=== PATIENT | female | born 1995 | race Caucasian/White ===

== ENCOUNTER 2019-11-04 18:27 | Emergency (ER) | payer MEDICAID ==
[~2019-11-04] VITALS: Ht 154.9 cm; Wt 54.0 kg
[2019-11-04 18:44] VITALS: BP 101/51
== END 2019-11-04 18:55 | disposition left against medical advice (07) ==
LOC: ER 18:27
DX: Z53.21 Procedure and treatment not carried out due to patient leaving prior to being seen by health care provider (principal)
CPT/HCPCS: 93005

== ENCOUNTER 2021-09-05 08:50 | Observation (INO) | payer MEDICAID, OTHER ==
[~2021-09-05] VITALS: Ht 162.6 cm; Wt 54.0 kg
[~2021-09-05 08:50] MED LIST: ACET-2708 PO
[2021-09-05] MEDS ORDERED: SODIUM CHLORIDE 0.9% 1,000 ML IV ONE (09:30)
[2021-09-05 09:51] LABS: BASOPHILS % 0.2 % (0.0-2.0); EOSINOPHILS % 0.4 % (0.0-5.0); HEMOGLOBIN. 10.1 g/dL (12.0-16.0); LYMPHOCYTES % 12.8 % (20.0-50.0); MEAN CORPUSCULAR HEMOGLOBIN 31.2 pg (28.0-32.0); MEAN CORPUSCULAR VOLUME 92.5 fL (81.0-99.0); MEAN PLATELET VOLUME 9.5 fl (7.4-10.4); NEUTROPHILS % 79.6 % (40.0-76.0); PLATELET 228 x1000/uL (130-400); RED BLOOD CELL COUNT 3.25 mill/uL (4.2-5.4); RED CELL DISTRIBUTION WIDTH 12.9 % (11.6-14.6)
[2021-09-05 10:02] LABS: CHLORIDE 106 mEq/L (98-107)
[2021-09-05 10:05] LABS: ETHANOL BLOOD < 10 mg/dL
[2021-09-05 10:24] LABS: B-HCG QUANTITATIVE 9671 mIU/mL (<3)
[2021-09-05 14:20] VITALS: BP 102/64
== END 2021-09-05 16:30 | disposition home or self-care (01) ==
LOC: ER 09:08 → 8 EST A/PP 16:05
PROVIDERS: ADMIT Obstetrics & Gynecology; ATTEND Obstetrics & Gynecology
DX: O26.892 Other specified pregnancy related conditions, second trimester (principal); M54.2 Cervicalgia; O99.512 Diseases of the respiratory system complicating pregnancy, second trimester; O26.832 Pregnancy related renal disease, second trimester; N28.9 Disorder of kidney and ureter, unspecified; O99.322 Drug use complicating pregnancy, second trimester; F15.90 Other stimulant use, unspecified, uncomplicated; O99.012 Anemia complicating pregnancy, second trimester; D64.9 Anemia, unspecified; J45.909 Unspecified asthma, uncomplicated; O99.342 Other mental disorders complicating pregnancy, second trimester; F53.1 Puerperal psychosis; R41.82 Altered mental status, unspecified; Z3A.24 24 weeks gestation of pregnancy; Z79.899 Other long term (current) drug therapy
CPT/HCPCS: 36415; 59025; 76805; 80053; 80307; 80320; 80329; 84702; 85025; 93005; 96360; 96361; 99285; G0378; J7030; 99281; G0480

== ENCOUNTER 2023-08-07 11:09 | Emergency (ER) | payer MEDICAID ==
[~2023-08-07] VITALS: Ht 154.9 cm; Wt 55.0 kg
[2023-08-07 11:11] VITALS: O2SAT 97
[2023-08-07] MEDS: LIDOCAINE HCL/PF 1% 10 MG/ML 5ML VIAL INFIL ONE (11:50)
[2023-08-07] MEDS: BACITRACIN ZINC OINT UDPKT TOP ONE (11:51)
[2023-08-07] MEDS: ACETAMINOPHEN 325MG TABLET PO ONE (11:51)
[2023-08-07] MEDS: TETANUS, DIPHTHERIA, PERTUSSIS VAC/PF 0.5ML (>10YR OLD) IM ONE (11:52)
[2023-08-07] MEDS ORDERED: ACET-2708 MT (13:04)
[2023-08-07] MEDS ORDERED: BO1 TP (13:04)
[2023-08-07 13:26] VITALS: BP 124/87; PULSE 84; RESP 16; TEMP 97.7
== END 2023-08-07 13:29 | disposition home or self-care (01) ==
LOC: ER 11:09
DX: S51.811A Laceration without foreign body of right forearm, initial encounter (principal); F15.10 Other stimulant abuse, uncomplicated; J45.909 Unspecified asthma, uncomplicated; N28.9 Disorder of kidney and ureter, unspecified; Z88.6 Allergy status to analgesic agent; Z88.3 Allergy status to other anti-infective agents; Z98.890 Other specified postprocedural states; W18.30XA Fall on same level, unspecified, initial encounter; Y93.89 Activity, other specified; Y92.89 Other specified places as the place of occurrence of the external cause; Y99.8 Other external cause status
CPT/HCPCS: 81025; 73090; 90715; 12002; 90471; 99283; J3490; Z7610 ×3

== ENCOUNTER 2024-09-29 03:07 | Emergency (ER) | payer MEDICAID ==
[~2024-09-29] VITALS: Ht 160 cm; Wt 61.0 kg
[~2024-09-29 03:07] MED LIST changes: +ACET-2708 MT; +BO1 TP; +LEVO-65 MT
[2024-09-29 03:17] VITALS: TEMP 36.7; O2SAT 100
[2024-09-29 05:41] LABS: BASOPHILS % 0.5 % (0.0-2.0); EOSINOPHILS % 2.0 % (0.0-5.0); HEMATOCRIT. 35.9 % (36.0-48.0); HEMOGLOBIN. 11.9 g/dL (12.0-16.0); LYMPHOCYTES % 18.8 % (20.0-50.0); MEAN PLATELET VOLUME 8.9 fl (7.4-10.4); MONOCYTES % 8.9 % (2.0-8.0); NEUTROPHILS % 69.8 % (40.0-76.0); PLATELET 308 x1000/uL (130-400); RED BLOOD CELL COUNT 3.76 mill/uL (4.2-5.4); RED CELL DISTRIBUTION WIDTH 13.2 % (11.6-14.6)
[2024-09-29] MEDS: ACETAMINOPHEN 325MG TABLET PO ONE (05:45)
[2024-09-29] MEDS: LIDOCAINE 5% PATCH TOP SCH (05:46)
[2024-09-29 05:56] LABS: CREATININE 0.6 mg/dL (0.6-1.0); UREA NITROGEN BLOOD 11 mg/dL (9-23)
[2024-09-29 05:57] LABS: ETHANOL BLOOD < 10 mg/dL (<10)
[2024-09-29 05:58] LABS: ASPARTATE AMINOTRANSFERASE 14 IU/L (<34); BILIRUBIN DIRECT 0.1 mg/dL (<=3.0); BILIRUBIN TOTAL 0.4 mg/dL (0.1-1.0)
[2024-09-29 05:59] LABS: PROTEIN TOTAL 7.3 g/dL (6.0-8.3)
[2024-09-29] MEDS ORDERED: ACET-2708 MT (07:06)
[2024-09-29] MEDS ORDERED: LIDO-53 TP (07:06)
[2024-09-29 07:21] VITALS: BP 103/70; PULSE 89; RESP 18; O2SAT 99
[2024-09-29 07:50] LABS: HCG SCREEN NEGATIVE
== END 2024-09-29 07:26 | disposition home or self-care (01) ==
LOC: ER 03:07
DX: M54.6 Pain in thoracic spine (principal); R51.9 Headache, unspecified; F15.10 Other stimulant abuse, uncomplicated; F10.10 Alcohol abuse, uncomplicated; J45.909 Unspecified asthma, uncomplicated; Z88.6 Allergy status to analgesic agent; Y90.9 Presence of alcohol in blood, level not specified
CPT/HCPCS: 36415; 80048; 80076; 80320; 81025; 84703; 85025; 99283; G0480